=== PATIENT | female | born 1950 | race Two or more races ===

== ENCOUNTER 2019-05-23 19:39 | Emergency (ER) | payer OTHER ==
[~2019-05-23] VITALS: Ht 154.9 cm; Wt 68.9 kg
[~2019-05-23 19:39] MED LIST: DICLOFENAC SODI50 MG PO; HYZAAR 100-121 UDTAB; JANUVIA50 MG; NEURONTIN800 MG
[2019-05-25] MEDS ORDERED: CARDURA XL4 MG (17:40)
== END 2019-05-24 00:30 | disposition home or self-care (01) ==
LOC: ER 19:39
DX: L03.116 Cellulitis of left lower limb (principal); M25.552 Pain in left hip

== ENCOUNTER 2019-05-25 17:10 | Emergency (ER) | payer OTHER ==
[~2019-05-25] VITALS: Ht 157.5 cm; Wt 71.7 kg
[2019-05-25] MEDS ORDERED: CARDURA XL4 MG (17:40)
[2019-05-26] MEDS ORDERED: LEVAQUIN500 MG PO (11:41)
== END 2019-05-26 13:33 | disposition home or self-care (01) ==
LOC: ER 17:10
DX: L03.115 Cellulitis of right lower limb (principal); I87.2 Venous insufficiency (chronic) (peripheral); N18.9 Chronic kidney disease, unspecified; M25.551 Pain in right hip; E11.22 Type 2 diabetes mellitus with diabetic chronic kidney disease; I12.9 Hypertensive chronic kidney disease with stage 1 through stage 4 chronic kidney disease, or unspecified chronic kidney disease

== ENCOUNTER 2019-05-28 11:27 | Emergency (ER) | payer OTHER ==
[~2019-05-28] VITALS: Ht 157.5 cm; Wt 68.0 kg
[~2019-05-28 11:27] MED LIST changes: +CARDURA XL4 MG; +LEVAQUIN500 MG PO
[2019-05-28] MEDS ORDERED: GLUCOTROL XL5 MG PO (12:16)
[2019-05-28] MEDS ORDERED: ATORVASTATIN CA10 MG PO (12:17)
[2019-05-28] MEDS ORDERED: ASPIR 8181 MG PO (12:17)
[2019-05-28] MEDS ORDERED: BUMETANIDE0.5 MG PO (12:17)
[2019-05-28] MEDS ORDERED: ALENDRONATE SOD70 MG PO (12:18)
[2019-05-28] MEDS ORDERED: ALLEGRA ALLERGY60 MG PO (12:18)
[2019-05-28] MEDS ORDERED: ZYRTEC10 M3 PO (12:19)
[2019-05-28] MEDS ORDERED: COZAAR100 MG PO (12:20)
== END 2019-05-28 15:20 | disposition home or self-care (01) ==
LOC: ER 11:27
DX: E11.649 Type 2 diabetes mellitus with hypoglycemia without coma (principal)

== ENCOUNTER 2019-06-19 09:23 | Outpatient (CLI) | payer OTHER ==
[~2019-06-19 09:23] MED LIST changes: +ALENDRONATE SOD70 MG PO; +ALLEGRA ALLERGY60 MG PO; +ASPIR 8181 MG PO; +ATORVASTATIN CA10 MG PO; +BUMETANIDE0.5 MG PO; +COZAAR100 MG PO; +GLUCOTROL XL5 MG PO; +ZYRTEC10 M3 PO
== END 2019-06-19 09:25 | disposition home or self-care (01) ==
LOC: MRI 09:23
DX: M54.5 Low back pain (principal); M79.604 Pain in right leg
CPT/HCPCS: 72148